=== PATIENT | male | born 1985 | race African-American/Black ===

== ENCOUNTER 2016-11-22 01:03 | Emergency (ER) | payer OTHER ==
[~2016-11-22] VITALS: Ht 175.3 cm; Wt 106.9 kg
[2016-11-22 02:40] VITALS: BP 125/82
== END 2016-11-22 02:41 | disposition home or self-care (01) ==
LOC: TRA 01:03
DX: R07.89 Other chest pain (principal); M25.561 Pain in right knee; M25.562 Pain in left knee; M25.571 Pain in right ankle and joints of right foot; M25.572 Pain in left ankle and joints of left foot; M79.641 Pain in right hand; M79.642 Pain in left hand; R51 Headache; V67.5XXA Driver of heavy transport vehicle injured in collision with fixed or stationary object in traffic accident, initial encounter; F17.200 Nicotine dependence, unspecified, uncomplicated
CPT/HCPCS: 71020; 99281; 99284